=== PATIENT | male | born 1970 | race Caucasian/White ===

== ENCOUNTER 2017-03-31 20:47 | Emergency (ER) | payer BC ==
[2017-03-31 20:56] VITALS: BP 110/69
[2017-03-31] MEDS ORDERED: Sulfamethox/Trimethoprim DS 800/160* TAB PO ONE (21:03)
--- NOTE | 2017-03-31 21:14 | UC ---
Skin Complaint HPI - HPI Summary HPI Summary: 46 year old male here with facial pain and swelling over right cheek. Patient reports he was bitten by spider while he was cutting x-mas tree about 10 days ago and he developed redness to the area. He was seen by his pmd and started keflex. He completed the course today but he reports the redness worsened, prompting him to come to the ED. Denies fever, chills, nausea or vomiting. No exacerbating or allevating factor. - History of Current Complaint Chief Complaint: UCSkin Time Seen by Provider: 03/31/17 20:58 Stated Complaint: FACIAL INFECTION Onset/Duration: Gradual Onset Skin Exposure Onset/Duration: Weeks Ago Timing: Constant Location: Diffuse Alleviating Factor(s): Nothing Associated Signs & Symptoms: Positive: Tenderness - Allergy/Home Medications Allergies/Adverse Reactions: Allergies Allergy/AdvReac Type Severity Reaction Status Date / Time Penicillins [PCN] Allergy Rash Verified 03/31/17 20:56 Review of Systems All Other Systems Reviewed And Are Negative: Yes PMH/Surg Hx/FS Hx/Imm Hx - Surgical History Surgical History: Yes Surgery Procedure, Year, and Place: L knee surgery - Social History Alcohol Use: Occasionally Substance Use Type: None Smoking Status (MU): Never Smoked Tobacco Physical Exam Triage Information Reviewed: Yes Appearance: Well-Appearing, No Pain Distress Vital Signs: Initial Vital Signs Temp 37.1 C 03/31/17 20:52 Pulse 53 03/31/17 20:52 Resp 16 03/31/17 20:52 BP 110/69 03/31/17 20:52 Pulse Ox 100 03/31/17 20:52 Eye Exam: Normal ENT Exam: Normal Neck exam: Normal Neck: Positive: Enlarged Nodes @ - preauricular lymph nodes Respiratory Exam: Normal Neurological: Positive: Alert Skin: Positive: Other - 3cm diameter erythema over right cheek with central crusted lesion No fluctuance Course/Dx - Course Course Of Treatment: Cellulitis. Will add bactrim and dc. - Differential Diagnoses - Skin Complaint Differential Diagnoses: Abscess, Cellulitis, Contact Dermatitis - Diagnoses Provider Diagnoses: Cellulitis Discharge - Discharge Plan Condition: Good Disposition: HOME Prescriptions: Ibuprofen [Ibuprofen 200 MG] 400 mg PO Q6HR PRN #30 cap PRN Reason: Pain Sulfamethox/Trimethoprim DS* [Bactrim DS 800/160 TAB*] 1 tab PO BID #20 tab Patient Education Materials: Cellulitis (ED) Referrals: Haylee Magdaleno MD [Primary Care Provider] - Additional Instructions: Return to the ED if you develop fever or redness extends in the next 48 hours.
== END 2017-03-31 21:12 | disposition home or self-care (01) ==
LOC: UCEAST 20:47
DX: L03.211 Cellulitis of face (principal); Z88.0 Allergy status to penicillin
CPT/HCPCS: 99212; A9270-GY; G0463